=== PATIENT | female | born 1980 | race Caucasian/White ===

== ENCOUNTER 2019-04-09 16:31 | Emergency (ER) | payer OTHER ==
--- OUTSIDE RECORDS SUMMARY | 2019-04-09 16:32 | XMS REPORT ---
:1980 [facility] Address [address] [place] [address] Dr. Coleman. [address] [place] [address] Care Team Providers Name Role Phone DR LYNNETTE ZAMORA Unavailable Unavailable Problems This patient has no known problems. Allergies, Adverse Reactions, Alerts This patient has no known allergies or adverse reactions. Medications This patient has no known medications. Encounters Start End Encounter Admission Attending Care Care Encounter Date/Time Date/Time Type Type Clinicians Facility Department ID 2018-01-25 2018-01-25 Outpatient C MARLEEN ZAMORA [facility] [place] [id number] 06:07:00 08:45:00 LYNNETTE Results Test Description Test Time Test Comments Text Results Atomic Results Result Comments URINE MONOCLONALFB 2018-01-25 07:31:00 Test Item Value Reference Range Comments PREG UR (test code=PGU) NEGATIVE NEGATIVE
[2019-04-09] MEDS ORDERED: BUPIVACAINE 0.5% PF 10 ML VIAL ONE (16:52)
--- NOTE | 2019-04-09 17:20 | EDPHYS ---
Physician Documentation [facility] Name: Sabrina Nelson Age: 39 yrs Sex: Female : 1980 Arrival Date: 04/09/2019 Time: 16:33 Bed 18 Private MD: ED Physician Darren Alcala HPI: 04/09 16:45 This 39 yrs old Female presents to ER via Ambulatory with complaints of jmm finger laceration. 16:45 The patient or guardian reports injury, pain. Onset: The symptoms/episode jmm began/occurred acutely, just prior to arrival. Modifying factors: The symptoms are alleviated by nothing, the symptoms are aggravated by nothing. Associated signs and symptoms: Pertinent positives: decreased sensation distally. This is a 39 year old female with no chronic medical conditions that presents to the ED with complaints of left 3rd finger pain after accidently slicing her finger on a mandolin slicer. Denies other injury. Patient is UTD on immunizations. . 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 - Social history:: Smoking status: Patient/guardian denies using tobacco. - Ebola Screening: : Patient denies travel to an Ebola-affected area in the 21 days before illness onset. ROS: 16:45 Constitutional: Negative for fever, chills, and weight loss, Cardiovascular: Negative jmm for chest pain, palpitations, and edema, Respiratory: Negative for shortness of breath, cough, wheezing, and pleuritic chest pain. 16:45 Skin: Positive for laceration(s). 16:45 All other systems are negative. Exam: 16:45 Head/Face: atraumatic. Eyes: EOMI, no conjunctival erythema appreciated ENT: Moist jmm Mucus Membranes Neck: Trachea midline, Supple Chest/axilla: Normal chest wall appearance and motion. Cardiovascular: Regular rate and rhythm. No edema appreciated Respiratory: Normal respirations, no respiratory distress appreciated Abdomen/GI: Non distended, soft Back: Normal ROM 16:45 Constitutional: The patient appears in no acute distress, alert, awake. 16:45 Skin: left 3rd distal phalanx avulsion appreciated, FROM appreciated. . 16:45 Neuro: Orientation: is normal, Mentation: is normal, Memory: is normal. 16:45 Psych: Behavior/mood is pleasant, cooperative. Vital Signs: 16:43 BP 187 / 103; Pulse 96; Resp 18; Temp 97.2; Pulse Ox 97% on R/A; Weight 86.18 kg (R); aj1 Height 5 ft. 8 in. (172.72 cm) (R); 17:43 BP 172 / 94; Pulse 68; Resp 18; Pulse Ox 100% on R/A; aj1 16:43 Body Mass Index 28.89 (86.18 kg, 172.72 cm) aj1 MDM: 16:45 Patient medically screened. [facility] 17:18 Data reviewed: vital signs, nurses notes. Counseling: I had a detailed discussion with drew the patient and/or guardian regarding: the historical points, exam findings, and any diagnostic results supporting the discharge/admit diagnosis, the need for outpatient follow up, to return to the emergency department if symptoms worsen or persist or if there are any questions or concerns that arise at home. ED course: Patient given wound infection return precautions. Patient understood and agree with the plan of care. . Administered Medications: 17:07 Drug: Marcaine (0.5 %) 10 ml {Note: by TYSON Ballard.} Volume: 10 ml; Route: aj1 Infiltration; Disposition: 04/09/19 17:19 Discharged to Home. Impression: Avulsion of the Left Third Distal Phalanx. - Condition is Stable. - Discharge Instructions: Traumatic Finger Amputation. - Medication Reconciliation Form, Thank You Letter, Antibiotic Education, Prescription Opioid Use form. - Follow up: Private Physician; When: 2 - 3 days; Reason: Recheck today's complaints, Continuance of care, Re-evaluation by your physician. Addendum: 04/14/2019 09:57 Co-signature as Attending Physician, Darren Alcala MD I agree with the assessment and k dr plan of care. Signatures: Ashley Faria RN RN aj1 Darren Alcala MD MD [facility] Randy Gibson PA PA jmm Corrections: (The following items were deleted from the chart) 04/09 17:44 17:19 04/09/2019 17:19 Discharged to Home. Impression: Avulsion of the Left Third aj1 Distal Phalanx. Condition is Stable. Forms are Medication Reconciliation Form, Thank You Letter, Antibiotic Education, Prescription Opioid Use. Follow up: Private Physician; When: 2 - 3 days; Reason: Recheck today's complaints, Continuance of care, Re-evaluation by your physician. drew
--- NOTE | 2019-04-09 17:20 | ER ---
Nurse's Notes [facility] Name: Sabrina Nelson Age: 39 yrs Sex: Female : 1980 Arrival Date: 04/09/2019 Time: 16:33 Bed 18 Private MD: Diagnosis: Avulsion of the Left Third Distal Phalanx Presentation: 04/09 16:40 Presenting complaint: Patient states: She was cutting apples with a mandolin and she aj1 accidentally cut off the tip of her finger. Avulsion injury noted to left middle finger. Transition of care: patient was not received from another setting of care. Onset of symptoms was April 09, 2019. Risk Assessment: Do you want to hurt yourself or someone else? Patient reports no desire to harm self or others. Initial Sepsis Screen: Does the patient meet any 2 criteria? No. Patient's initial sepsis screen is negative. Does the patient have a suspected source of infection? No. Patient's initial sepsis screen is negative. Care prior to arrival: None. 16:40 Method Of Arrival: Ambulatory aj 16:40 Acuity: RJ 4 aj1 Triage Assessment: 16:43 General: Appears in no apparent distress. comfortable, Behavior is cooperative, aj1 anxious. Pain: Complains of pain in palmar aspect of distal phalanx of left middle finger. 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 - Social history:: Smoking status: Patient/guardian denies using tobacco. - Ebola Screening: : Patient denies travel to an Ebola-affected area in the 21 days before illness onset. Screenin:44 Abuse screen: Denies threats or abuse. Denies injuries from another. Nutritional aj1 screening: No deficits noted. Tuberculosis screening: No symptoms or risk factors identified. 17:43 Fall Risk None identified. aj1 Assessment: 16:44 General: Appears in no apparent distress. comfortable, Behavior is cooperative, aj1 appropriate for age, anxious. Pain: Complains of pain in palmar aspect of distal phalanx of left middle finger. Neuro: Level of Consciousness is awake, alert, obeys commands, Oriented to person, place, time, situation. Cardiovascular: Patient's skin is warm and dry. Respiratory: Airway is patent Respiratory effort is even, unlabored, Respiratory pattern is regular, symmetrical. GI: No signs and/or symptoms were reported involving the gastrointestinal system. : No signs and/or symptoms were reported regarding the genitourinary system. EENT: No signs and/or symptoms were reported regarding the EENT system. Derm: Skin is pink, warm \T\ dry. Musculoskeletal: Range of motion: intact in all extremities. Injury Description: Avulsion sustained to palmar aspect of distal phalanx of left middle finger. 17:42 Reassessment: Patient appears in no apparent distress at this time. No changes from [facility] previously documented assessment. Patient and/or family updated on plan of care and expected duration. Pain level reassessed. Patient is alert, oriented x 3, equal unlabored respirations, skin warm/dry/pink. Vital Signs: 16:43 BP 187 / 103; Pulse 96; Resp 18; Temp 97.2; Pulse Ox 97% on R/A; Weight 86.18 kg (R); aj1 Height 5 ft. 8 in. (172.72 cm) (R); 17:43 BP 172 / 94; Pulse 68; Resp 18; Pulse Ox 100% on R/A; aj1 16:43 Body Mass Index 28.89 (86.18 kg, 172.72 cm) aj1 ED Course: 16:33 Patient arrived in ED. mr 16:40 Randy Gibson PA is PHCP. [facility] 16:40 Darren Alcala MD is Attending Physician. jm 16:40 Ashley Faria, THEODORE is Primary Nurse. aj1 16:42 Triage completed. aj1 16:43 Arm band placed on. aj1 16:44 Patient has correct armband on for positive identification. Bed in low position. Call aj light in reach. Side rails up X 1. 16:44 No provider procedures requiring assistance completed. aj1 17:07 Wound care: to Avulsion located on palmar aspect of distal phalanx of left middle aj1 finger was cleaned with Hibiclens, irrigated with normal saline, dressed with Surgi-Sharon, covered with 4x4 and wrapped with Kerlix. 17:43 Patient did not have IV access during this emergency room visit. aj1 Administered Medications: 17:07 Drug: Marcaine (0.5 %) 10 ml {Note: by TYSON Ballard.} Volume: 10 ml; Route: aj1 Infiltration; Outcome: 17:19 Discharge ordered by MD. russell 17:43 Discharged to home ambulatory. aj1 17:43 Condition: good 17:43 Discharge instructions given to patient, Instructed on discharge instructions, follow up and referral plans. Demonstrated understanding of instructions, follow-up care. 17:44 Patient left the ED. aj1 Signatures: Ashley Faria RN RN ajRandy Omalley PA PA jmm Caleb Bobbi mr
[2019-04-09 18:14] VITALS: TEMP 97.2
[2019-04-09 18:15] VITALS: BP 172/94; O2SAT 100
== END 2019-04-09 17:44 | disposition home or self-care (01) ==
LOC: ER 16:31
DX: S61.203A Unspecified open wound of left middle finger without damage to nail, initial encounter (principal); W26.0XXA Contact with knife, initial encounter; Y93.89 Activity, other specified; Y92.9 Unspecified place or not applicable
CPT/HCPCS: 99283

== ENCOUNTER 2022-05-02 10:31 | Emergency (ER) | payer OTHER ==
--- OUTSIDE RECORDS SUMMARY | 2022-05-02 10:33 | XMS REPORT | Continuity of Care Document ---
:1980 Author Organization [facility] t Address [address] [place] [address] Care Team Providers Name Role Phone PCP, PATIENT DOES NOT HAVE A Primary Care Physician Unavaila ESTEFANÍA Molina Attending Clinician Unavailable Estefanía Castellanos PA-C Attending Clinician Doctor Unassigned, [place] Attending Clinician Unavailable DR LYNNETTE ZAMORA Attending Clinician Unavailable DR LYNNETTE ZAMORA Admitting Clinician Unavailable Payers Payer Name Policy Type Policy Number Effective Date Expiration Date S nino [employer] [id number] 2019 OUT OF NETWORK 00:00:00 Problems Condition Condition Condition Status Onset Resolution Last Treating Co mments Source Name Details Category Date Date Treatment Clinician Date No known No known Disease Unive rs active active ity of problems problems [facility] Allergies, Adverse Reactions, Alerts Allergy Allergy Status Severity Reaction(s) Onset Inactive Treating Comm ents Source Name Type Date Date Clinician NO KNOWN Drug Active Univers ALLERGIE Class ity of [facility] [place] [facility] Social History Social Habit Start Date Stop Date Quantity Comments Source History SDIL University o f Alcohol Binge [place] [facility] History SDIL University o f Alcohol Frequency [place] [facility] History [facility] University o f Alcohol Std [place] [facility] Exposure to 2021-10-01 2021-10-11 Not sure University of SARS-CoV-2 00:00:00 14:08:00 [facility] (event) Branch Alcohol intake 2021-10-11 2021-10-11 Current drinker Unive rsity of 00:00:00 00:00:00 of alcohol [facility] (finding) Branch Alcohol Comment 2019-08-13 2019-08-13 socially Universit y of 00:00:00 00:00:00 [facility] Tobacco use and 2019-08-13 2019-08-13 Never used Universit y of exposure 00:00:00 00:00:00 [facility] Sex Assigned At [birth year] Universit y of 00:00:00 00:00:00 [facility] Smoking Status Start Date Stop Date Source Never smoker [facility] Medications Ordered Filled Start Stop Current Ordering Indication Dosage Frequency Signature Comments Components Source Medication Medication Date Date Medication? Clinician (SIG) Name Name NUVARING 2021- 1{each} Insert 1 U nivers 0.12-0.015 10-11 Each into ity of mg/24 hr 15:04: 00:00 vagina. [place] vaginal 13 :00 Medical insert Branch [facility] Yes [id number] 1{each} Insert 1 Univers 0.12-0.015 -31 Each into ity of mg/24 hr 00:00: vagina [place] vaginal 00 once every Medica l insert . Branch Vital Signs Vital Name Observation Time Observation Value Comments Source Systolic blood 2021-10-11 19:36:00 168 mm[Hg] Univer sity of pressure [facility] Diastolic blood 2021-10-11 19:36:00 113 mm[facility]Hg] [facility] Heart rate 2021-10-11 19:11:00 83 /min [facility] Body temperature 2021-10-11 19:11:00 36.94 Shraon [facility] Respiratory rate 2021-10-11 19:11:00 18 /min [facility] Body height 2021-10-11 19:11:00 172.7 cm [facility] Body weight 2021-10-11 19:11:00 94.802 kg [facility] BMI 2021-10-11 19:11:00 31.78 kg/m2 [facility] Procedures This patient has no known procedures. Encounters Start End Encounter Admission Attending Care Care Encounter Source Date/Time Date/Time Type Type Clinicians Facility Department ID 2021-10-11 2021-10-11 Outpatient Claudette CASTELLANOS [facility] [id number] Univers 14:00:00 15:01:01 ESTEFANÍA cope [facility] 2021-10-11 2021-10-11 Office Emanuel [facility] [id number] Univers 14:00:00 15:01:01 Visit Estefanía ALICEA [id number] i ty of [place] [id number] [phone] Ri dical NAL [address] [place] [address] 2021-10-11 2021-10-11 Outpatient R EMANUEL [facility] [id number] Univers 14:00:00 15:01:01 ESTEFANÍA cope [facility] 2021-10-11 2021-10-11 Orders Doctor KIKO [id number] [facility] 00:00:00 00:00:00 Only Unassigned, PAPITO [id number] ity of [place] [facility] [id number] Dominic as [phone] [place] [address] Branch 2018-01-25 2018-01-25 Outpatient Primo ZAMORA [facility] [id number] 06:07:00 08:45:00 [facility] Results Test Description Test Time Test Comments Results Result Comments Source URINE MONOCLONALFB 2018-01-25 07:31:00 Test Item Value Reference Range Interpretation Comme nts PREG UR (test code = PGU) NEGATIVE NEGATIVE
--- NOTE | 2022-05-02 10:51 | EDPHYS ---
Physician Documentation [facility] Name: Sabrina Nelson Age: 42 yrs Sex: Female : 1980 Arrival Date: 05/02/2022 Time: 10:34 Bed Waiting Private MD: ED Physician Sebastien Bray HPI: 05/02 10:53 This 42 yrs old Female presents to ER via Unassigned with complaints of Bartholin's ms3 Cyst. 10:53 The patient presents with Bartholin cyst. Onset: The symptoms/episode began/occurred 3 ms3 day(s) ago. Modifying factors: The symptoms are alleviated by nothing, the symptoms are aggravated by movement. Associated signs and symptoms: Pertinent negatives: fever. Severity of symptoms: At their worst the symptoms were severe, in the emergency department the symptoms have resolved, and did so while in waiting room. 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 - Social history:: Smoking status: Patient denies any tobacco usage or history of. ROS: 10:53 Positive for Bartholin cyst. ms3 10:53 Constitutional: Negative for fever, and chills. Neck: Negative for injury, pain, and swelling, Cardiovascular: Negative for chest pain, and palpitations. Respiratory: Negative for shortness of breath, cough, wheezing, and pleuritic chest pain, Abdomen/GI: Negative for abdominal pain, nausea, vomiting, diarrhea, and constipation, Skin: Negative for injury, rash, and discoloration. 10:53 All other systems are negative. Exam: 10:53 Constitutional: This is a well developed, well nourished patient who is awake, alert, ms3 and in no acute distress. Head/Face: Normocephalic, atraumatic. Neck: Trachea midline, no cervical lymphadenopathy. Supple, full range of motion without nuchal rigidity, or vertebral point tenderness. No Meningismus. Chest/axilla: Normal chest wall appearance and motion. Nontender with no deformity. Cardiovascular: Regular rate and rhythm with a normal S1 and S2. No gallops, murmurs, or rubs. Normal PMI, no JVD. No pulse deficits. Respiratory: Lungs have equal breath sounds bilaterally, clear to auscultation and percussion. No rales, rhonchi or wheezes noted. No increased work of breathing, no retractions or nasal flaring. Abdomen/GI: Soft, non-tender, with normal bowel sounds. No distension or tympany. No guarding or rebound. No evidence of tenderness throughout. 10:53 : Deferred. Vital Signs: 10:53 BP 156 / 105; Pulse 119; Resp 17; Temp 98.6; Pulse Ox 98% ; Weight 90.72 kg; Height 5 jl7 ft. 8 in. (172.72 cm); Pain 0/10; 10:53 Body Mass Index 30.41 (90.72 kg, 172.72 cm) jl7 MDM: 10:50 Patient medically screened. ms3 10:53 Data reviewed: vital signs, nurses notes, and as a result, I will discharge patient. ms3 Counseling: I had a detailed discussion with the patient and/or guardian regarding: the historical points, exam findings, and any diagnostic results supporting the discharge/admit diagnosis, the need for outpatient follow up, to return to the emergency department if symptoms worsen or persist or if there are any questions or concerns that arise at home. ED course: While in the waiting room patient's cyst burst giving patient relief. Patient given prescription for doxycycline. Patient to follow-up with gynecology in 2 to 3 days. Patient stands reason plan. All questions were answered. Return precautions discussed include worsening symptoms, or any other concerns. Administered Medications: No medications were administered Disposition Summary: 05/02/22 10:50 Discharge Ordered Location: Home ms3 Condition: Stable ms3 Diagnosis - Abscess of Bartholin's gland ms3 Followup: ms3 - With: Katherine Ramos MD - When: 2 - 3 days - Reason: Recheck today's complaints Discharge Instructions: - Discharge Summary Sheet ms3 - Bartholin's Cyst ms3 - Bartholin's Cyst, [id number] ms3 Forms: - Medication Reconciliation Form ms3 - Thank You Letter ms3 - Antibiotic Education ms3 - Prescription Opioid Use ms3 Prescriptions: - Doxycycline Hyclate 100 mg Oral Tablet - take 1 tablet by ORAL route every 12 hours; 20 tablet; Refills: 0, Product ms3 Selection Permitted Signatures: Kim Alva RN RN jl7 Sebastien Bray DO DO ms3
--- NOTE | 2022-05-02 10:58 | ER ---
Nurse's Notes [facility] Name: Sabrina Nelson Age: 42 yrs Sex: Female : 1980 Arrival Date: 05/02/2022 Time: 10:34 Bed Waiting Private MD: Diagnosis: Abscess of Bartholin's gland Presentation: 05/02 10:53 Chief complaint: Patient states: Bartholins cyst since Sunday, rupture while signing [facility] papers for registration. Coronavirus screen: At this time, the client does not indicate any symptoms associated with coronavirus-19. Ebola Screen: No symptoms or risks identified at this time. Initial Sepsis Screen: Does the patient meet any 2 criteria? No. Patient's initial sepsis screen is negative. Does the patient have a suspected source of infection? No. Patient's initial sepsis screen is negative. Risk Assessment: Do you want to hurt yourself or someone else? Patient reports no desire to harm self or others. Onset of symptoms was April 28, 2022. 10:53 Method Of Arrival: Ambulatory jl 10:53 Acuity: RJ 4 jl7 Triage Assessment: 10:54 General: Appears in no apparent distress. uncomfortable, Behavior is calm, cooperative, jl7 appropriate for age. Pain: Pain currently is 0 out of 10 on a pain scale. at worst was 10 out of 10 on a pain scale. 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 - Social history:: Smoking status: Patient denies any tobacco usage or history of. Screenin:57 [facility] ED Fall Risk Assessment (Adult) History of falling in the last 3 months, jl7 including since admission No falls in past 3 months (0 pts). Humpty Dumpty Scale Fall Assessment Tool (age< 18yrs) Gender Female (1 pt). Abuse screen: Denies threats or abuse. Denies injuries from another. Nutritional screening: No deficits noted. Tuberculosis screening: No symptoms or risk factors identified. Fall Risk Total Mccarthy Fall Scale indicates No Risk (0-24 pts). Vital Signs: 10:53 BP 156 / 105; Pulse 119; Resp 17; Temp 98.6; Pulse Ox 98% ; Weight 90.72 kg; Height 5 jl7 ft. 8 in. (172.72 cm); Pain 0/10; 10:53 Body Mass Index 30.41 (90.72 kg, 172.72 cm) jl7 ED Course: 10:34 Patient arrived in ED. as 10:44 Niurka Mercado FNP-C is [facility] kb 10:44 Sebastien Bray DO is Attending Physician. kb 10:50 Katherine Ramos MD is Referral Physician. ms3 10:54 Triage completed. jl7 10:54 Arm band placed on right wrist. jl7 10:57 Patient has correct armband on for positive identification. jl7 10:57 No provider procedures requiring assistance completed. Patient did not have IV access jl7 during this emergency room visit. Administered Medications: No medications were administered Medication: 10:57 VIS not applicable for this client. jl7 Outcome: 10:50 Discharge ordered by . ms3 10:57 Discharged to home ambulatory. jl7 10:57 Condition: stable 10:57 Discharge instructions given to patient, Instructed on discharge instructions, follow up and referral plans. medication usage, Demonstrated understanding of instructions, follow-up care, medications, Prescriptions given X 1. 10:58 Patient left the ED. jl7 Signatures: Niurka Mercado FNP-C FNP-Ckb Martinez, Amelia as Leal, Jahala RN RN jl7 Sebastien Bray DO DO ms3
[2022-05-02 11:02] VITALS: BP 156/105; TEMP 98.6; O2SAT 98
== END 2022-05-02 10:58 | disposition home or self-care (01) ==
LOC: ER 10:31
DX: N75.1 Abscess of Bartholin's gland (principal)
CPT/HCPCS: 99282